=== PATIENT | female | born 1985 | race Caucasian/White ===

== ENCOUNTER → 2021-10-13 | Outpatient (POV) | payer OTHER ==
[~2021-10-13] VITALS: Ht 152.4 cm; Wt 53.6 kg
[~2021-10-13] MED LIST: ANUS2.5C2 PR; DOCU10CA PO; DOCU5LIQ PO; IBUP80TA PO; MAPA500T17 PO; MAPA500T2 PO; MOM30SS PO; PRE-TAB3 PO; PRENTAB74 PO; ZOLO25TA PO
[2021-10-13 09:10] VITALS: BP 137/84
== END ==
LOC: M IRPOV 09:02
PROVIDERS: ATTEND Radiology Diagnostic Radiology
DX: R10.2 Pelvic and perineal pain (principal); I83.93 Asymptomatic varicose veins of bilateral lower extremities

== ENCOUNTER → 2022-02-24 | Outpatient (CLI) | payer OTHER | LOC: M WHC 10:16 | PROVIDERS: ATTEND Midwife | DX: Z34.80 Encounter for supervision of other normal pregnancy, unspecified trimester (principal); Z3A.19 19 weeks gestation of pregnancy ==